=== PATIENT | female | born 1985 | race American Indian/Alaskan Native ===

== ENCOUNTER 2017-03-29 22:44 | Emergency (ER) | payer SELFPAY ==
[2017-03-30] MEDS ORDERED: TYLENOL #3 PO ONE (00:34)
[2017-03-30] MEDS ORDERED: NORCO 5/325 PO ONE (02:57)
[2017-03-30] MEDS ORDERED: TORADOL IM ONE ×2 (02:57→03:19)
[2017-03-30] MEDS ORDERED: CATAPRES PO ONE (02:57)
[2017-03-30] MEDS ORDERED: TORADOL ONE (03:20)
[2017-03-30 03:24] LABS: Basophils % (Auto) 1.1 % (0.0-1.8); Eosinophils % (Auto) 1.9 % (0.0-4.3); Hematocrit 36.6 % (30.3-42.9); Hemoglobin 12.2 gm/dl (10.1-14.3); Mean Corpuscular HGB Conc 33 % (30-34); Mean Corpuscular Hemoglobin 29 pg (28-32); Mean Corpuscular Volume 86 fl (79-97); Platelet Count 274 K/mm3 (140-440); Red Blood Count 4.27 M/mm3 (3.65-5.03); Red Cell Distribution Width 15.3 % (13.2-15.2); White Blood Count 11.9 K/mm3 (4.5-11.0)
[2017-03-30 03:37] LABS: Anion Gap 20 mmol/L; BUN/Creatinine Ratio 16.66; Blood Urea Nitrogen 10 mg/dL (7-17); Carbon Dioxide 24 mmol/L (22-30); Chloride 99.9 mmol/L (98-107); Glucose 88 mg/dL (65-100); Potassium 3.9 mmol/L (3.6-5.0); Sodium 140 mmol/L (137-145)
--- NOTE | 2017-03-30 05:14 | Emergency Department Report ---
ED ENT HPI - General Chief complaint: Dental/Oral Stated complaint: TOOTHACHE Source: patient Mode of arrival: Ambulatory Limitations: No Limitations - Related Data Previous Rx's Medication Instructions Recorded Last Taken Type Clindamycin [Clindamycin CAP] 300 mg PO Q8H #21 cap 03/30/17 Unknown Rx Naproxen [Naprosyn] 500 mg PO BID #14 tablet 03/30/17 Unknown Rx Allergies Allergy/AdvReac Type Severity Reaction Status Date / Time No Known Allergies Allergy Verified 03/30/17 02:26 ED Dental HPI - General Chief complaint: Dental/Oral Stated complaint: TOOTHACHE Source: patient Mode of arrival: Ambulatory Limitations: No Limitations - Related Data Previous Rx's Medication Instructions Recorded Last Taken Type Clindamycin [Clindamycin CAP] 300 mg PO Q8H #21 cap 03/30/17 Unknown Rx Naproxen [Naprosyn] 500 mg PO BID #14 tablet 03/30/17 Unknown Rx Allergies Allergy/AdvReac Type Severity Reaction Status Date / Time No Known Allergies Allergy Verified 03/30/17 02:26 ED Review of Systems ROS: Stated complaint: TOOTHACHE Other details as noted in HPI ED Past Medical Hx - Past Medical History Previous Medical History?: Yes Hx Hypertension: Yes (Gestational) - Surgical History Additional Surgical History: - Social History Smoking Status: Never Smoker Substance Use Type: None - Medications Home Medications: Home Medications Medication Instructions Recorded Confirmed Last Taken Type Clindamycin [Clindamycin CAP] 300 mg PO Q8H #21 cap 03/30/17 Unknown Rx Naproxen [Naprosyn] 500 mg PO BID #14 tablet 03/30/17 Unknown Rx ED Physical Exam - General Limitations: No Limitations ED Course Vital Signs 03/30/17 03/30/17 03/30/17 00:32 00:39 02:04 Temperature 98.5 F Pulse Rate 86 78 Respiratory 20 20 20 Rate Blood Pressure 155/114 Blood Pressure 160/110 [Left] O2 Sat by Pulse 99 100 Oximetry 03/30/17 03:48 Temperature Pulse Rate Respiratory Rate Blood Pressure 160/110 Blood Pressure [Left] O2 Sat by Pulse Oximetry ED Medical Decision Making - Lab Data Result diagrams: 03/30/17 03:05 03/30/17 03:05 Critical care attestation.: If time is entered above; I have spent that time in minutes in the direct care of this critically ill patient, excluding procedure time. ED Disposition Disposition: [id number] TO HOME OR SELFCARE Condition: Stable Instructions: Dental Abscess (ED) Prescriptions: Clindamycin [Clindamycin CAP] 300 mg PO Q8H #21 cap Naproxen [Naprosyn] 500 mg PO BID #14 tablet Referrals: JENNY LANE MD [Staff Physician] - 2-3 Days PRIMARY CARE, [Primary Care Provider] - [facility] (Angelic Guillen DDS Dentist in [place], [place] Address: [address] [place] [address] Hours: Open today 8AM4PM )
[2017-03-30 05:50] VITALS: BP 166/109
== END 2017-03-30 05:51 | disposition home or self-care (01) ==
LOC: ED 22:44
DX: K08.89 Other specified disorders of teeth and supporting structures (principal); I10 Essential (primary) hypertension
CPT/HCPCS: 36415; 80048; 81025; 85025; 96372; 99283; J1885